=== PATIENT | female | born 2000 | race Caucasian/White ===

== ENCOUNTER 2022-10-28 16:00 | Emergency (ER) | payer BC, OTHER ==
[2022-10-28 18:22] LABS: Absolute Lymphocytes (CBC) 2.6 K/uL (0.7-4.9); Hematocrit 34.3 % (36.0-45.0); Lymphocytes % 22.9 % (15.3-44.8); MPV 8.5 fL (7.6-11.3); RBC Red Blood Cell Count 4.51 M/uL (3.86-4.86)
[2022-10-28 18:23] LABS: Specific Gravity > 1.030 (1.005-1.030)
[2022-10-28 18:27] LABS: Calcium Oxalate Crystals- Ur Few /HPF (None Seen); Specific Gravity > 1.030 (1.005-1.030); Urine Bacteria None Seen /HPF (<20); Urine Bilirubin NEGATIVE (Negative); Urine Blood Negative (Negative); Urine Clarity Extremely Turbid (Clear); Urine Color Yellow (Yellow); Urine Glucose NEGATIVE (Negative); Urine Mucus 2+ /HPF (None Seen); Urine Protein 1+ (Negative); Urine RBC <5 /HPF (None Seen); Urine Urobilinogen 1+ (Normal)
[2022-10-28] MEDS ORDERED: FAMOTIDINE 20 MG/2 ML VIAL IV ONE (18:27)
[2022-10-28] MEDS ORDERED: ONDANSETRON 4 MG/2 ML VIAL ONE (18:27)
[2022-10-28] MEDS ORDERED: NA CHLORIDE 0.9% 1,000 ML ONE (18:27)
[2022-10-28] MEDS ORDERED: KETOROLAC 30 MG/ML INJ ONE (18:27)
[2022-10-28 18:39] LABS: Albumin 3.5 g/dL (3.4-5.0); Bilirubin Total 0.2 mg/dL (0.2-1.0); Potassium 3.8 mEq/L (3.5-5.1); Protein, Total 7.4 g/dL (6.4-8.2)
--- NOTE | 2022-10-28 18:46 | RAD REPORT ---
EXAM DESCRIPTION: CT - Abdomen Pelvis Wo Contrast - 10/28/2022 6:20 pm CLINICAL HISTORY: Abdominal pain /left flank pain COMPARISON: 2014 TECHNIQUE: Computed axial tomography of the abdomen and pelvis was obtained. IV and oral contrast we re not requested. All CT scans are performed using dose optimization technique as appropriate and may include automated exposure control or mA/KV adjustment according to patient size. FINDINGS: The evaluation of solid organs, vessels and bowel is limited secondary to the lack of con trast administration. The liver, spleen, pancreas, adrenals and left kidney appear grossly normal. 2 millimeter calculus right kidney. No hydronephrosis. The appendix is normal. There is no evidence of diverticulitis. 5.3 centimeter right ovarian cystic mass. No significant free fluid IMPRESSION: 5.3 centimeter right ovarian cystic mass. No significant free fluid. Follow up ultrasoun d in 6 months recommended
--- NOTE | 2022-10-28 18:58 | ER ---
Nurse's Notes [facility] Name: Karla Farmer Age: 22 yrs Sex: Female : 2000 Arrival Date: 10/28/2022 Time: 16:00 Bed 19 Private MD: Diagnosis: Strain of muscle, fascia and tendon of lower back;UTI/ Urinary tract infection, site not specified;Other ovarian cysts Presentation: 10/28 16:06 Chief complaint: Patient states: Lower left flank pain X 2 days. Radiates to lower left ld1 quadrant. Difficulty urinating. Coronavirus screen: At this time, the client does not indicate any symptoms associated with coronavirus-19. Ebola Screen: No symptoms or risks identified at this time. Initial Sepsis Screen: Does the patient meet any 2 criteria? No. Patient's initial sepsis screen is negative. Does the patient have a suspected source of infection? No. Patient's initial sepsis screen is negative. Risk Assessment: Do you want to hurt yourself or someone else? Patient reports no desire to harm self or others. Onset of symptoms was October 28, 2022. 16:06 Method Of Arrival: Ambulatory ld1 16:06 Acuity: ASHWIN 3 ld1 Triage Assessment: 16:08 General: Appears in no apparent distress. comfortable, Behavior is calm, cooperative, ld1 appropriate for age. Pain: Complains of pain in left low back Pain radiates to abdomen Pain currently is 5 out of 10 on a pain scale. at worst was 10 out of 10 on a pain scale. Quality of pain is described as throbbing, Pain began suddenly. EENT: No signs and/or symptoms were reported regarding the EENT system. Neuro: Level of Consciousness is awake, alert, obeys commands, Oriented to person, place, time, situation. Cardiovascular: Capillary refill < 3 seconds Patient's skin is warm and dry. Respiratory: Airway is patent Respiratory effort is even, unlabored. GI: Abdomen is round non-distended. : No signs and/or symptoms were reported regarding the genitourinary system. Derm: No signs and/or symptoms reported regarding the dermatologic system. Musculoskeletal: No signs and/or symptoms reported regarding the musculoskeletal system. 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 - Social history:: Smoking status: Reported history of juuling and/or vaping. Patient uses alcohol, occasionally. Screenin:50 [facility] ED Fall Risk Assessment (Adult) History of falling in the last 3 months, db including since admission No falls in past 3 months (0 pts) Confusion or Disorientation No (0 pts) Intoxicated or Sedated No (0 pts) Impaired Gait No (0 pts) Mobility Assist Device Used No (0 pt) Altered Elimination No (0 pt) Score/Fall Risk Level 0 - 2 = Low Risk Oriented to surroundings, Maintained a safe environment. Abuse screen: Denies threats or abuse. Denies injuries from another. Nutritional screening: No deficits noted. Tuberculosis screening: No symptoms or risk factors identified. Assessment: 18:00 Neuro: Level of Consciousness is awake, alert, obeys commands, Oriented to person, db place, time, situation. Respiratory: Airway is patent Respiratory effort is even, unlabored, Respiratory pattern is regular. 18:49 Reassessment: Patient appears in no apparent distress at this time. Patient and/or db family updated on plan of care and expected duration. Pain level reassessed. Patient is alert, oriented x 3, equal unlabored respirations, skin warm/dry/pink. General: Appears in no apparent distress. comfortable, Behavior is calm, cooperative. Pain: Complains of pain in back and left low back. Vital Signs: 16:06 BP 116 / 94; Pulse 84; Resp 18; Temp 98.6(O); Pulse Ox 100% on R/A; Pain 9/10; ld1 16:09 Weight 122.47 kg; Height 5 ft. 9 in. ; ld1 19:49 BP 135 / 77; Pulse 75; Resp 16; Pulse Ox 98% on R/A; sg5 16:09 Body Mass Index 39.87 (122.47 kg, 175.26 cm) ld1 16:06 Pain Scale: Adult ld1 ED Course: 16:02 Patient arrived in ED. rg4 16:03 Aleshia Juarez PA-C is PHCP. sb4 16:03 Yaron Hernandez MD is Attending Physician. sb4 16:08 Triage completed. ld1 16:08 Arm band placed on right wrist. ld1 16:13 Radiology exam delayed due to test not completed at this time. IV insertion jg10 attempt and/or patient not having appropriate IV at this time. 17:40 Hina Oconnor, RN is Primary Nurse. db 18:14 Inserted saline lock: 20 gauge in right antecubital area, using aseptic technique. db Blood collected. 18:21 CT Abd/Pelvis - Without Contrast In Process Unspecified. EDMS 18:56 Mahendra Farris MD is Referral Physician. sb4 19:28 Primary Nurse role handed off by Hina Oconnor, RN rv1 19:49 Carole Irwin, OSMANI is Primary Nurse. sg5 20:02 No provider procedures requiring assistance completed. IV discontinued. sg5 20:03 Patient has correct armband on for positive identification. Placed in gown. Bed in low sg5 position. Call light in reach. Side rails up X2. Adult w/ patient. Valuables Left with patient. Administered Medications: 18:30 Drug: NS 0.9% IV 1000 ml Route: IV; Rate: 1 bolus; Site: right antecubital; db 18:35 Drug: Famotidine IVP 20 mg Route: IVP; Site: right antecubital; db 18:35 Drug: TORadol - Ketorolac IVP 15 mg Route: IVP; Site: right antecubital; db 18:35 Drug: Ondansetron IVP 4 mg Route: IVP; Site: right antecubital; db Medication: 20:03 VIS not applicable for this client. sg5 Outcome: 18:57 Discharge ordered by . sb4 20:02 Discharged to home ambulatory. sg5 20:02 Condition: good 20:02 Discharge instructions given to patient, Instructed on discharge instructions, follow up and referral plans. 20:03 Patient left the ED. sg5 Signatures: Dispatcher [employer] RANDYAK Krissy Addison4 Munira Hudson, RN RN ld1 Hina Oconnor, RN RN db Aleshia Juarez PA-C PACurtis sb4 Sammi Irwin jg10 Jenna Steele rv1 Carole Irwin RN RN sg5
--- NOTE | 2022-10-28 18:58 | EDPHYS ---
Physician Documentation [facility] Name: Karla Farmer Age: 22 yrs Sex: Female : 2000 Arrival Date: 10/28/2022 Time: 16:00 Bed 19 Private MD: ED Physician Yaron Hernandez HPI: 10/28 16:12 This 22 yrs old Female presents to ER via Ambulatory with complaints of Low sb4 Back Pain, Hip Pain. 16:21 The patient presents with pain that is acute, with no known mechanism of injury. The sb4 symptoms are located in the low back. Location: left low back. The problem was sustained without known cause. Onset: The symptoms/episode began/occurred 1 week(s) ago. Modifying factors: The patient symptoms are alleviated by remaining still, the patient symptoms are aggravated by bending, movement. Associated signs and symptoms: Pertinent positives: none Pertinent negatives: fever, hematuria, incontinence, urinary retention, vomiting. The patient has not experienced similar symptoms in the past. The patient has not recently seen a physician. 16:22 22-year-old female with past medical history of bipolar disorder and ovarian cysts who sb4 presents with left low back pain for a week. She denies any injury that she can recall. She states that the pain radiates around to her left lower abdomen. She denies any urinary symptoms, fever, nausea, vomiting. Does report chronic UTIs as a child and a ruptured ovarian cyst about a month ago. Denies any history of kidney stones. 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 - Social history:: Smoking status: Reported history of juuling and/or vaping. Patient uses alcohol, occasionally. ROS: 16:24 Constitutional: Negative for fever, chills, and weight loss, Eyes: Negative for injury, sb4 pain, redness, and discharge, ENT: Negative for injury, pain, and discharge, Neck: Negative for injury, pain, and swelling, Cardiovascular: Negative for chest pain, palpitations, and edema, Respiratory: Negative for shortness of breath, cough, wheezing, and pleuritic chest pain, Abdomen/GI: Negative for abdominal pain, nausea, vomiting, diarrhea, and constipation, : Negative for injury, bleeding, discharge, and swelling, Skin: Negative for injury, rash, and discoloration, Neuro: Negative for headache, weakness, numbness, tingling, and seizure. 16:24 Back: Positive for pain with movement, flank pain, on the left, radiated pain, of the left low back. 16:24 MS/extremity: Positive for pain, Negative for injury or acute deformity, decreased range of motion, deformity, erythema, paresthesias. Exam: 16:24 Constitutional: This is a well developed, well nourished patient who is awake, alert, sb4 and in no acute distress. Head/Face: Normocephalic, atraumatic. Eyes: Extra-ocular motions intact. Periorbital areas with no swelling, redness, or edema. ENT: Mucous membranes moist. Cardiovascular: Regular rate and rhythm with a normal S1 and S2. Respiratory: Lungs have equal breath sounds bilaterally, clear to auscultation and percussion. No rales, rhonchi or wheezes noted. No increased work of breathing, no retractions or nasal flaring. Abdomen/GI: Soft, non-tender, no distension. Skin: Warm, dry with normal turgor. Normal color with no rashes, no lesions, and no evidence of cellulitis. MS/ Extremity: Pulses equal, no cyanosis. Neurovascular intact. Full, normal range of motion. 16:24 Back: pain, that is mild, of the left low back, ROM is painful, with all movement, normal spinal alignment noted, no deformity, CVA tenderness, that is mild, is noted on the left, muscle spasm, is not present. Vital Signs: 16:06 BP 116 / 94; Pulse 84; Resp 18; Temp 98.6(O); Pulse Ox 100% on R/A; Pain 9/10; ld1 16:09 Weight 122.47 kg; Height 5 ft. 9 in. ; ld1 19:49 BP 135 / 77; Pulse 75; Resp 16; Pulse Ox 98% on R/A; sg5 16:09 Body Mass Index 39.87 (122.47 kg, 175.26 cm) ld1 16:06 Pain Scale: Adult ld1 MDM: 16:03 Patient medically screened. sb4 16:24 Differential diagnosis: strain, sciatica, Herniated disc UTI, nephrolithiasis, sb4 pyelonephritis, ovarian cyst, ectopic . 18:54 Data reviewed: vital signs, nurses notes, lab test result(s), radiologic studies, CT sb4 scan. Data reviewed: and as a result, I will discharge patient. Test considered but Not performed: Ultrasound pelvic US not indicated at this time. Counseling: I had a detailed discussion with the patient and/or guardian regarding: the historical points, exam findings, and any diagnostic results supporting the discharge/admit diagnosis, lab results, radiology results, to return to the emergency department if symptoms worsen or persist or if there are any questions or concerns that arise at home. Medication response: Toradol partially relieved the patient's pain. Special discussion: I discussed with the patient/guardian in detail that at this point there is no indication for admission to the hospital. It is understood, however, that if the symptoms persist or worsen the patient needs to return immediately for re-evaluation. 10/28 16:11 Order name: CBC with Diff; Complete Time: 18:28 sb4 10/28 16:11 Order name: CMP; Complete Time: 18:49 sb4 10/28 16:11 Order name: Lipase; Complete Time: 18:49 sb4 10/28 16:11 Order name: Test, Urine; Complete Time: 18:28 sb4 10/28 16:11 Order name: Urinalysis w/ reflexes; Complete Time: 18:28 sb4 10/28 17:55 Order name: CT Abd/Pelvis - Without Contrast; Complete Time: 18:49 sb4 10/28 16:11 Order name: IV Saline Lock; Complete Time: 18:49 sb4 10/28 16:11 Order name: Labs collected and sent; Complete Time: 18:49 sb4 Administered Medications: 18:30 Drug: NS 0.9% IV 1000 ml Route: IV; Rate: 1 bolus; Site: right antecubital; db 18:35 Drug: Famotidine IVP 20 mg Route: IVP; Site: right antecubital; db 18:35 Drug: TORadol - Ketorolac IVP 15 mg Route: IVP; Site: right antecubital; db 18:35 Drug: Ondansetron IVP 4 mg Route: IVP; Site: right antecubital; db Disposition: 20:17 Co-signature as Attending Physician, Yaron Hernandez MD I reviewed the patient's care rn provided by the Advanced Practice Provider and agree with the diagnosis and treatment plan. Disposition Summary: 10/28/22 18:57 Discharge Ordered Location: Home sb4 Problem: new sb4 Symptoms: have improved sb4 Condition: Stable sb4 Diagnosis - Strain of muscle, fascia and tendon of lower back sb4 - UTI/ Urinary tract infection, site not specified sb4 - Other ovarian cysts sb4 Followup: sb4 - With: Mahendra Farris MD - When: 1 week - Reason: Further diagnostic work-up, Recheck today's complaints, Re-evaluation by your physician Discharge Instructions: - Discharge Summary Sheet sb4 - Urinary Tract Infection, Adult, [id number] sb4 - Low Back Sprain or Strain Rehab sb4 Forms: - Medication Reconciliation Form sb4 - Thank You Letter sb4 - Antibiotic Education sb4 - Prescription Opioid Use sb4 - [email or web address] sb4 Prescriptions: - Macrobid 100 mg Oral Capsule - take 1 capsule by ORAL route every 12 hours for 10 days; 20 capsule; Refills: sb4 0, Product Selection Permitted - Cyclobenzaprine 5 mg Oral Tablet - take 1 tablet by ORAL route 3 times per day As needed; 15 tablet; Refills: 0, sb4 Product Selection Permitted Signatures: Dispatcher [employer] EDYaron Garibay MD MD rn Sims, Lauren RN RN ld1 Hina Oconnor RN RN db Aleshia Juarez PA-C PACurtis sb4 Corrections: (The following items were deleted from the chart) 17:59 16:12 Abdomen Pelvis W Con+CT.[email or web address].BRZ ordered. EDMS EDMS
[2022-10-28 20:28] VITALS: TEMP 98.6
[2022-10-28 20:29] VITALS: BP 135/77; O2SAT 98
== END 2022-10-28 20:03 | disposition home or self-care (01) ==
LOC: ER 16:00
DX: S39.012A Strain of muscle, fascia and tendon of lower back, initial encounter (principal); N39.0 Urinary tract infection, site not specified; N83.299 Other ovarian cyst, unspecified side; Z88.0 Allergy status to penicillin; Z88.3 Allergy status to other anti-infective agents
CPT/HCPCS: 85025; 81001; 36415; 81025; 83690; 80053; 74176; 96375; 96374; 99284; J2405; J7030